=== PATIENT | male | born 1980 | race Hispanic/Latino ===

== ENCOUNTER 2023-03-08 12:12 | Emergency (ER) | payer OTHER, SELFPAY ==
[~2023-03-08 12:12] MED LIST: Calcium Chloride 1 GM/10 ML Abboject SYRINGE ONE; EPINEPHrine 1 MG/10 ML Abboject SYRINGE ONE
[2023-03-08] MEDS ORDERED: Sodium Chloride 0.9% 1,000 ML ONE (12:40)
== END 2023-03-08 17:03 | disposition expired ==
LOC: EDBD 12:12 → MADERS 12:12
DX: I46.9 Cardiac arrest, cause unspecified (principal); R58 Hemorrhage, not elsewhere classified; S26.90XA Unspecified injury of heart, unspecified with or without hemopericardium, initial encounter; R93.5 Abnormal findings on diagnostic imaging of other abdominal regions, including retroperitoneum; S60.512A Abrasion of left hand, initial encounter; S60.511A Abrasion of right hand, initial encounter; S80.812A Abrasion, left lower leg, initial encounter; S80.811A Abrasion, right lower leg, initial encounter; V53.5XXA Driver of pick-up truck or van injured in collision with car, pick-up truck or van in traffic accident, initial encounter
CPT/HCPCS: 31500; 36416; 92950; G0390; J0171; J7050